=== PATIENT | female | born 1990 ===

== ENCOUNTER 2021-03-09 07:02 | Inpatient (IN) | payer MEDICAID, OTHER ==
[2021-03-09] MEDS ORDERED: LACTATED RINGERS 2,000 ML ONE (07:23)
[2021-03-09] MEDS ORDERED: LACTATED RINGERS 1,000 ML IV SCH ×2 (07:30→08:00)
--- NOTE | 2021-03-09 07:34 | History and Physical Report ---
History of Present Illness Date of examination: 03/09/21 Date of admission: 03/09/21 Chief complaint: Contractions History of present illness: 30 year old presents in active advanced labor. History of a previous section in [place] in 2012. Patient received care at [facility] and she brings records with her. LMP 06/03/2020. EDC 03/10/2021. significant for the following: previous section, late entry to care, GBS positive, size greater than dates. labs are as follows: O+, antibody screen negative, rubella immune, hepatitis B surface antigen negative, HIV negative, RPR nonreactive, gonorrhea n egative, chlamydia negative, 1 hour sugar test 108, GBS positive. 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 denies: smoking, alcohol abuse, prescription drug abuse, IV drug use - Obstetrical History Expected Date of Delivery: 03/10/21 Actual Gestation: 39 Week(s) 6 Day(s) : 2 Para: 1 Hx # Term Pregnancies: 1 Number of Pregnancies: 0 Spontaneous Abortions: 0 Induced : 0 Number of Living Children: 1 Medications and Allergies Allergies Allergy/AdvReac Type Severity Reaction Status Date / Time No Known Allergies Allergy Unverified 03/09/21 07:24 Active Meds: Active Medications Citric Acid/Sodium Citrate (Bicitra Oral Liqd 30ml) 30 ml PO ONCE ONE Stop: 03/09/21 07:27 Ephedrine Sulfate (Ephedrine Sulfate 50 Mg/1 Ml Inj) 10 mg IV Q2M PRN PRN Reason: Hypotension Famotidine (Famotidine 20 Mg/2 Ml Inj) 20 mg IV ONCE ONE Stop: 03/09/21 07:27 Lactated Ringer's (Lactated Ringers) 1,000 mls @ 125 mls/hr IV DIRECT DREAD Ampicillin Sodium (Ampicillin/Ns 2 Gm/100 Ml) 2 gm in 100 mls @ 100 mls/hr IV ONCE ONE; Protocol Stop: 03/09/21 08:21 Ampicillin Sodium (Ampicillin/Ns 1 Gm/50 Ml) 1 gm in 50 mls @ 100 mls/hr IV Q4H DREAD; Protocol Lactated Ringer's (Lactated Ringers) 1,000 mls @ 2,250 mls/hr IV PREOP DREAD Stop: 03/10/21 07:57 Oxytocin/Sodium Chloride (Pitocin/Ns 30 Unit/500ml) 30 units in 500 mls @ 0 mls/hr IV TITR DREAD; Protocol Cefazolin Sodium (Ancef/Sterile Water 2 Gm/20 Ml) 2 gm in 20 mls @ 80 mls/hr IV PREOP NR; Protocol Lidocaine (Lidocaine (2%) 20 Mg/1 Ml Vial 20 Ml Mdv) 20 ml INFILTRATI ONCE ONE Stop: 03/09/21 07:23 Metoclopramide HCl (Metoclopramide 10 Mg/2 Ml Inj) 10 mg IV ONCE ONE Stop: 03/09/21 07:27 Mineral Oil (Mineral Oil 30 Ml Oral Liqd) 30 ml PO QHS PRN PRN Reason: Constipation Terbutaline Sulfate (Terbutaline 1 Mg/1 Ml Inj) 0.25 mg SUB-Q ONCE PRN PRN Reason: Hyperstimulation/Hypertonicity Review of Systems All systems: negative (contractions) - Vital Signs Vital signs: Vital Signs Pulse Pulse Ox 78 99 03/09/21 07:10 03/09/21 07:10 Temp Pulse Resp BP Pulse Ox 98.3 F 77 18 121/70 99 03/09/21 07:25 03/09/21 07:28 03/09/21 07:25 03/09/21 07:25 03/09/21 07:28 - Physical Exam Abdomen: Positive: normal appearance, soft. Negative: distention, tenderness, guarding, rigidity Genitourinary (Female): Positive: normal external genitalia, normal perenium. Negative: perineal/vulvar lesions Vagina: Positive: normal moisture Uterus: Positive: enlarged. Negative: tender Anus/Rectum: Positive: normal perianal skin Extremities: Negative: tenderness - Obstetrical FHR: category 1 Uterine Contraction Monitor Mode: External Cervical Dilatation: 7 Cervical Effacement Percentage: 80 (BBOW) station: -2 Uterine Contraction Pattern: Regular Uterine Contraction Intensity: Moderate Results All other labs normal. Assessment and Plan A: at 39 weeks, 6 days gestation. Active labor. Previous section. GBS positive. P: Admit. GBS prophylaxis. Consulted with Dr. Mei re: this patient. Dr. Mei en route to hospital. Mode of delivery to be determined by Dr. Mei. Continuous EFM.
[2021-03-09] MEDS ORDERED: miSOPROStol 200 MCG TAB ONE (07:53)
[2021-03-09] MEDS ORDERED: LIDOCAINE (2%) 20 MG/1 ML VIAL 20 ML MDV INFILTRATI SCH (08:00)
[2021-03-09] MEDS ORDERED: BICITRA ORAL LIQD 30ML PO SCH (08:00)
[2021-03-09] MEDS ORDERED: ePHEDrine SULFATE 50 MG/1 ML INJ IV PRN (08:00)
[2021-03-09] MEDS ORDERED: ceFAZolin/Water 2 GM/20 ML 2 GM/20 ML SYRINGE IV NR (08:00)
[2021-03-09] MEDS ORDERED: FAMOTIDINE 20 MG/2 ML INJ IV SCH (08:00)
[2021-03-09] MEDS ORDERED: TERBUTALINE 1 MG/1 ML INJ SUB-Q PRN (08:00)
[2021-03-09] MEDS ORDERED: METOCLOPRAMIDE 10 MG/2 ML INJ IV SCH (08:00)
[2021-03-09] MEDS ORDERED: OXYTOCIN DRIP 30 UNITS/500 ML BAG IV SCH (08:00)
[2021-03-09] MEDS ORDERED: MINERAL OIL 30 ML ORAL LIQD PO PRN (08:00)
[2021-03-09 08:16] LABS: Hematocrit 38.7 % (30.3-42.9); Mean Corpuscular HGB Conc 34 % (30-34); Mean Corpuscular Volume 91 fl (79-97); Platelet Count 180 K/mm3 (140-440); Red Blood Count 4.25 M/mm3 (3.65-5.03); Red Cell Distribution Width 16.1 % (13.2-15.2)
[2021-03-09] MEDS ORDERED: AMPICILLIN/NS 2 GM/100 ML 2 GM/100 ML BAG IV ONE (08:30)
[2021-03-09] MEDS ORDERED: miSOPROStol 100 MCG TAB ONE (08:48)
[2021-03-09] MEDS ORDERED: METHYLERGONOVINE MALEATE 0.2 MG/ML VIAL IM ONE (08:48)
--- NOTE | 2021-03-09 10:07 | Progress Note ---
Subjective - Subjective Date of service: 03/09/21 Interval history: Patient complete at 09:45/-1 station FHT 130 baseline,+ve variables with early component,moderate variability [place]:Q2 minutes Abd: soft, NT Plan to allow for passive descent expect Boni Mei MD Objective - Vital Signs Vital Signs: Vital Signs - 12hr 03/09/21 03/09/21 03/09/21 07:10 07:12 07:15 Temperature Pulse Rate 78 84 74 Respiratory Rate Blood Pressure 136/68 Blood Pressure [Right] O2 Sat by Pulse 99 99 Oximetry 03/09/21 03/09/21 03/09/21 07:25 07:28 07:33 Temperature 98.3 F Pulse Rate 76 77 78 Respiratory 18 Rate Blood Pressure Blood Pressure 121/70 [Right] O2 Sat by Pulse 99 99 99 Oximetry 03/09/21 03/09/21 03/09/21 07:38 07:43 07:48 Temperature Pulse Rate 81 84 77 Respiratory Rate Blood Pressure Blood Pressure [Right] O2 Sat by Pulse 99 99 99 Oximetry 03/09/21 03/09/21 03/09/21 07:53 07:58 08:03 Temperature Pulse Rate 76 79 76 Respiratory Rate Blood Pressure Blood Pressure [Right] O2 Sat by Pulse 99 99 99 Oximetry 03/09/21 03/09/21 03/09/21 08:08 08:13 08:18 Temperature Pulse Rate 82 81 73 Respiratory Rate Blood Pressure Blood Pressure [Right] O2 Sat by Pulse 99 99 99 Oximetry 03/09/21 03/09/21 03/09/21 08:23 08:28 08:33 Temperature Pulse Rate 90 77 84 Respiratory Rate Blood Pressure Blood Pressure [Right] O2 Sat by Pulse 99 98 99 Oximetry 03/09/21 03/09/21 03/09/21 08:38 08:43 08:48 Temperature Pulse Rate 79 83 83 Respiratory Rate Blood Pressure Blood Pressure [Right] O2 Sat by Pulse 99 98 98 Oximetry 03/09/21 03/09/21 03/09/21 08:53 08:58 09:03 Temperature Pulse Rate 88 102 H 78 Respiratory Rate Blood Pressure Blood Pressure [Right] O2 Sat by Pulse 99 98 98 Oximetry 03/09/21 03/09/21 03/09/21 09:08 09:11 09:13 Temperature Pulse Rate 89 76 78 Respiratory Rate Blood Pressure 118/65 Blood Pressure [Right] O2 Sat by Pulse 98 98 Oximetry 03/09/21 03/09/21 03/09/21 09:18 09:23 09:28 Temperature Pulse Rate 91 H 79 99 H Respiratory Rate Blood Pressure Blood Pressure [Right] O2 Sat by Pulse 99 98 99 Oximetry 03/09/21 03/09/21 03/09/21 09:29 09:33 09:38 Temperature Pulse Rate 86 93 H 95 H Respiratory Rate Blood Pressure 130/75 Blood Pressure [Right] O2 Sat by Pulse 99 99 Oximetry 03/09/21 03/09/21 03/09/21 09:43 09:48 09:53 Temperature Pulse Rate 90 104 H 83 Respiratory Rate Blood Pressure Blood Pressure [Right] O2 Sat by Pulse 99 98 98 Oximetry 03/09/21 09:58 Temperature Pulse Rate 98 H Respiratory Rate Blood Pressure Blood Pressure [Right] O2 Sat by Pulse 99 Oximetry - Labs Labs: Abnormal Labs 03/09/21 07:10 RDW 16.1 H Laboratory Results - last 24 hr 03/09/21 03/09/21 07:10 07:10 WBC 9.7 RBC 4.25 Hgb 13.0 Hct 38.7 MCV 91 MCH 31 MCHC 34 RDW 16.1 H Plt Count 180 Blood Type O POSITIVE Antibody Screen Negative
[2021-03-09] MEDS ORDERED: MORPHINE 2 MG/1 ML INJ ONE (11:00)
[2021-03-09] MEDS ORDERED: AMPICILLIN/NS 1 GM/50 ML 1 GM/50 ML BAG IV SCH (11:30)
--- NOTE | 2021-03-09 11:48 | Procedure Note ---
OB Delivery Note - Delivery Date of Delivery: 03/09/21 Surgeon: CHELLY CELESTE Estimated blood loss: other (350ml) - Vaginal Delivery position: OA Intrapartum events: mult.variable deceleratio Delivery induction: none Delivery augmentation: rupture of membranes, pitocin Delivery monitor: external uterine, internal FHT Route of delivery: Indicators for instrumentation: maternal exhaustion Delivery placenta: spontaneous Delivery cord: 3 umbilical vessels Episiotomy: none Delivery laceration: 3rd degree, other (left lateral vaginal sulcus) Delivery repair: chromic Anesthesia: local Delivery comments: Patient pushed to deliver via VAVD over an intact perineum a viable male with weight 3438gms and 8/9. Vacuum applied for prolonged bradycardia with poor pushing effort. One pop off,two pulls total, no excess traction or force applied, Vacuum applied to 500mmHg. Position DEEPA, no nuchal cord. Spontaneous cry at delivery. Delivery of the anterior shoulder atraumatic, remainder of delivery uncomplicated. Cord clamped cut and baby handed to waiting AMELIE team. Spontaneous delivery of an intact placenta with three-vessel cord. Inspection of the perineum cervix and vagina revealed third degree perineal and lateral vaginal sulcus lacerations that were repaird with 2-0 Vicryl in the usual fashion. Firm fundus, EBL 350ml. All sponge needle and instrument counts correct x2. Mom and baby stable to . Boni Celeste MD
[2021-03-09] MEDS: IBUPROFEN 600 MG TAB PO SCH ×2 (12:39→19:06)
[2021-03-09] MEDS ORDERED: diphenhydrAMINE 25 MG CAP PO PRN (13:00)
[2021-03-09] MEDS ORDERED: MAGNESIUM HYDROXIDE (MOM) ORAL LIQD UDC PO PRN (13:00)
[2021-03-09] MEDS ORDERED: PROMETHAZINE 25 MG TAB PO PRN (13:00)
[2021-03-09] MEDS ORDERED: ACETAMINOPHEN 325 MG TAB PO PRN (13:00)
[2021-03-09] MEDS ORDERED: ONDANSETRON 4 MG/2 ML INJ IV PRN (13:00)
[2021-03-09] MEDS ORDERED: WITCH HAZEL/ GLYCERIN PAD TP PRN (13:00)
[2021-03-09] MEDS ORDERED: PROMETHAZINE 25 MG RECT SUPP PR PRN (13:00)
[2021-03-09] MEDS ORDERED: HYDROcodone/ACETAMINOPHEN 5-325 MG TAB PO PRN (13:00)
[2021-03-09] MEDS ORDERED: LANOLIN/ZINC/DIMETHICONE (LANSINOH) 7 GM TP PRN (13:00)
[2021-03-10 01:46] LABS: Hemoglobin 10.2 gm/dl (10.1-14.3)
[2021-03-10] MEDS: IBUPROFEN 600 MG TAB PO SCH ×4 (05:26→19:40)
--- NOTE | 2021-03-10 13:12 | Progress Note ---
Assessment and Plan A: day 1 S/P VAVD. Anemia. P: Supplement with oral iron. Continue routine care. Subjective - Subjective Date of service: 03/10/21 Principal diagnosis: day 1 S/P VAVD Interval history: Doing well. No complaints. Patient reports: appetite normal, voiding normally, pain well controlled, flatus, ambulating normally, no dizzy ambulation, no nauseated [place]: doing well Objective - Vital Signs Latest vital signs: Vital Signs Temp Pulse Resp BP BP Pulse Ox 03/10/21 08:03 97.8 F 71 18 99/57 95 03/10/21 05:26 18 03/10/21 02:30 77 18 102/56 100 03/10/21 01:11 98.3 F 73 18 91/48 97 03/09/21 21:06 98.3 F 95 H 20 100/47 97 03/09/21 16:45 98.2 F 78 18 105/61 97 03/09/21 13:15 98.9 F 86 16 114/62 98 Intake and Output 03/09/21 03/10/21 03/10/21 23:59 07:59 15:59 Intake Total 600 Output Total 1400 Balance -1400 600 Intake: Oral 240 Intake, Free Water 360 Output: Urine 1400 Void 1400 Other: Total, Intake Amount 240 Total, Output Amount 500 # Voids Void 1 1 - Exam Cardiovascular: Present: Regular rate Lungs: Present: Clear to auscultation Abdomen: Present: normal appearance, soft, normal bowel sounds. Absent: distention, tenderness, guarding, rigidity Uterus: Present: normal, firm, fundal height below umbilicus. Absent: bogginess, tenderness Extremities: Present: normal. Absent: tenderness, edema - Labs Labs: Abnormal lab results 03/10/21 Range/Units 01:22 Hct 30.0 L D (30.3-42.9) %
[2021-03-10] MEDS: FERROUS SULFATE 325 MG TAB PO SCH (16:51)
[2021-03-11] MEDS: IBUPROFEN 600 MG TAB PO SCH ×3 (06:30→13:45)
[2021-03-11 08:27] LABS: Basophils % (Auto) 0.5 % (0.0-1.8); Eosinophils # (Auto) 0.1 K/mm3 (0.0-0.4); Hematocrit 32.9 % (30.3-42.9); Lymphocytes # (Auto) 1.6 K/mm3 (1.2-5.4); Lymphocytes % (Auto) 17.9 % (13.4-35.0); Mean Corpuscular HGB Conc 34 % (30-34); Mean Corpuscular Volume 92 fl (79-97); Monocytes # (Auto) 0.5 K/mm3 (0.0-0.8); Monocytes % (Auto) 5.9 % (0.0-7.3); Platelet Count 171 K/mm3 (140-440); Red Blood Count 3.59 M/mm3 (3.65-5.03); Red Cell Distribution Width 15.8 % (13.2-15.2)
[2021-03-11 08:35] LABS: Color,Urine Straw (Yellow)
[2021-03-11 08:36] LABS: Bilirubin,Urine NEG (Negative); Blood,Urine MOD (Negative); Mucus,Urine FEW /HPF; Protein,Urine <15 mg/dL mg/dL (Negative); Urobilinogen,Urine < 2.0 mg/dL (<2.0)
--- NOTE | 2021-03-11 08:57 | Progress Note ---
Assessment and Plan PPD # 2 A: S/P Elevated WBCs in urine P: Continue routine pp care Rhocephin 250mg IM now Will d/c home and f/u urine cul Subjective - Subjective Date of service: 03/11/21 Principal diagnosis: day 2 S/P VAVD Patient reports: appetite normal, voiding normally, pain well controlled, ambulating normally, other (denies burning,urgency,or freq upon urination.) : doing well, bottle feeding Objective - Vital Signs Latest vital signs: Vital Signs Temp Pulse Resp BP BP Pulse Ox 03/11/21 07:40 97.8 F 76 18 103/57 96 03/10/21 23:31 98.1 F 73 20 99/46 99 03/10/21 16:19 98.4 F 18 114/58 Intake and Output 03/10/21 03/11/21 03/11/21 22:59 06:59 14:59 Intake Total 240 240 Balance 240 240 Intake: Oral 240 240 Other: Total, Intake Amount 240 240 # Voids Void 1 1 - Exam Breasts: Present: normal Abdomen: Present: normal appearance, soft, normal bowel sounds Vulva: both: normal Uterus: Present: normal, firm, fundal height below umbilicus Extremities: Present: normal Incision: Present: normal, intact, other (3rd degree lac) - Labs Labs: Abnormal lab results 03/11/21 03/11/21 Range/Units 07:03 Unknown RBC 3.59 L (3.65-5.03) M/mm3 RDW 15.8 H (13.2-15.2) % Seg Neutrophils % 74.7 H (40.0-70.0) % Urine WBC (Auto) 14.0 H (0.0-6.0) /HPF
--- NOTE | 2021-03-11 09:15 | Discharge Summary ---
Providers - Providers Date of Admission: 03/09/21 07:22 Date of discharge: 03/11/21 Attending physician: CHELLY CELESTE MD Primary care physician: CHELLY CELESTE MD Hospitalization Reason for admission: active labor Delivery: Episiotomy: none Laceration: 3rd degree, other (charly sulcus tears) Incision: normal, intact Other procedures: none complications: UTI Discharge diagnosis: IUP at term delivered baby: male Hospital course: Pt was admitted in active labor and had a . She dev a uti pp and was sent home after 1 dose of Rocephin. Will f/u with urine c&s. See H&P, delivery summary, and pp notes. Condition at discharge: Stable Disposition: DC- TO HOME OR SELFCARE Plan - Discharge Medications Prescriptions: Ibuprofen [Motrin] 600 mg PO Q8H PRN #60 tablet PRN Reason: Pain oxyCODONE /ACETAMINOPHEN [Percocet 5/325] 1 tab PO Q6HR PRN #20 tablet PRN Reason: Pain - Provider Discharge Summary Activity: routine, no sex for 6 weeks, no heavy lifting 4 weeks, no strenuous exercise Diet: routine Instructions: routine Additional instructions: [] Smoking cessation referral if applicable(refer to patient education folder for contact #) [] Refer to [facility] Booklet Call your doctor immediately for: * Fever > 100.5 * Heavy vaginal bleeding ( >1 pad per hour) * Severe persistent headache * Shortness of breath * Reddened, hot, painful area to leg or breast * Drainage or odor from incision. * Keep incision clean and dry at all times and follow doctor's instructions regarding bathing/showering - Follow up plan Follow up: CHELLY CELESTE MD [Primary Care Provider] - 6 Weeks
[2021-03-11] MEDS ORDERED: LIDOCAINE-MPF (1%) 10 MG/1 ML VIAL 5 ML INFILTRATI SCH (10:00)
[2021-03-11] MEDS: FERROUS SULFATE 325 MG TAB PO SCH (13:44)
[2021-03-11 15:39] VITALS: BP 107/60
== END 2021-03-11 15:35 | disposition home or self-care (01) | DRG 768 ==
LOC: TRG 07:02 → APU 07:03 → LD 07:22 → TRG 08:10 → OB 13:03
PROVIDERS: ADMIT Obstetrics & Gynecology; ATTEND Obstetrics & Gynecology
PROC: 10D07Z6 Extraction of Products of Conception, Vacuum, Via Natural or Artificial Opening (ICD-10-PCS; principal; 2021-03-09)
PROC: 0DQR0ZZ Repair Anal Sphincter, Open Approach (ICD-10-PCS; 2021-03-09)
DX: O34.211 Maternal care for low transverse scar from previous cesarean delivery (principal); Z37.0 Single live birth; O70.20 Third degree perineal laceration during delivery, unspecified; Z3A.39 39 weeks gestation of pregnancy; Z20.822 Contact with and (suspected) exposure to COVID-19
CPT/HCPCS: 36415; 59025; 81001; 85014; 85018; 85025; 85027; 86592; 86850; 86900; 86901; 87086; 96360; G0378; J0290; J0696; J2270; J2590; J7120; U0003